=== PATIENT | female | born 1970 | race Caucasian/White ===

== ENCOUNTER 2017-01-12 14:23 | Emergency (ER) | payer SELFPAY ==
[2017-01-12] MEDS ORDERED: methylPREDNISolone Acetate 40 mg/ml Vial ONE (14:48)
== END 2017-01-12 15:07 | disposition home or self-care (01) ==
LOC: NAV ERS 14:23
DX: T63.481A Toxic effect of venom of other arthropod, accidental (unintentional), initial encounter (principal); L98.8 Other specified disorders of the skin and subcutaneous tissue; F41.9 Anxiety disorder, unspecified; F17.210 Nicotine dependence, cigarettes, uncomplicated
CPT/HCPCS: 96372; J1030

== ENCOUNTER 2017-01-16 09:34 | Emergency (ER) | payer SELFPAY | END 2017-01-16 10:19 | disposition home or self-care (01) | LOC: NAV ERS 09:34 | DX: F41.9 Anxiety disorder, unspecified (principal); E86.0 Dehydration; F17.210 Nicotine dependence, cigarettes, uncomplicated | CPT/HCPCS: 99284 ==